=== PATIENT | female | born 1960 | race Caucasian/White ===

== ENCOUNTER → 2017-01-02 | Day surgery (SDC) | payer BC ==
[~2017-01-02] MED LIST: ALBUTEROL17 GM INH; CLIMARA 0.050.05 MG EXT; DETROL LA PO; FLONASE ALLERG9.9 ML; K-DUR20 ME1 PO; LOSARTAN POTASS50 MG PO; MACRODANTIN50 MG PO; OMEPRAZOLE40 M1 PO; TEGRETOL PO; [UNRECOGNIZED DRUG - OTHER]
--- NOTE | ~2017-01-02 | OR ---
Unit #: [id number] #: [id number] Patient: LIDYA JIMENEZ [id number] [address] [place], [place] [address] [id number] O MR#: [id number] NAME: LIDYA JIMENEZ. ROOM: Date of Procedure: 01/01/2017 Admission Date: 01/02/2017 Surgeon: Anahy Dias M.D. : 1960 Attending Physician: Anahy Dias M.D. Primary Care Physician: Mariano Michele M.D. OPERATIVE REPORT PROCEDURE PERFORMED Bronchoscopy with bronchial wash, bronchoalveolar lavage, right middle lobe and left lower lobe. INDICATIONS FOR PROCEDURE Acute bronchitis. INDICATIONS FOR PROCEDURE This is a 56-year-old lady with severe chronic cough. DESCRIPTION OF PROCEDURE After obtained informed consent, bronchoscope was passed oropharyngeally without difficulty into the right upper, right middle, right lower, left upper, left lingular, left lower. Anesthesia had been given. The bronchoscope had been passed through the oropharynx with 2% Xylocaine and 1% Xylocaine used. The oropharynx had showed significant erythema. The trachea had showed very significant erythema with small areas of bleeding with even smallest touch of the bronchoscope. The airways showed changes of chronic bronchitis including significant pitting hypertrophy of the bronchial rings, very easy collapsibility; however, also there were changes of diffuse erythematous tracheobronchitis with easy bruising, very easy bleeding from not just with suctioning, but just with having the bronchoscope touch the baltazar. There were very scant purulent mucus plugs. The airways did not show any endobronchial lesions; however, they did collapse very easily and there was a significant amount of watery thin secretions. Bronchoscope was passed into the right middle lobe and approximately 120 mL sterile nonbacteriostatic saline was introduced, approximately 40 mL were returned. This was clear fluid, not particularly foamy, but there was no evidence of purulence. Bronchoscope was then passed into the left lower lobe posterior segment. 90 mL of sterile nonbacteriostatic saline was introduced and approximately 20 was returned. Due to the irritation, the fluid was slightly pink. It was very foamy when agitated. Bronchoscope was then withdrawn. There were no acute complications. There were no limitations. Thank you very much. Please page me at [phone] if you have any questions. Dictated by... Anahy Dias M.D. Unit #: [id number] #: [id number] Patient: LIDYA JIMENEZ ERICK/wesly TD: 01/02/2017 22:45 JOB #: [id number] OPERATIVE REPORT Page 1 of 1 X Enrique Dias MD X PROCEDURE OPERATIVE NOTE
[2017-01-02 11:54] LABS: BODY FLUID APPEARANCE CLEAR; BODY FLUID SOURCE BRONCHIAL LAVAGE
[2017-01-02 11:55] LABS: BF TOTAL NUCLEATED CELL COUNT 101 CMM (0-100); BODY FLUID RBC <10000 CMM
[2017-01-02 11:56] LABS: BF TOTAL NUCLEATED CELL COUNT 257 CMM (0-100); BODY FLUID APPEARANCE BLOODY; BODY FLUID RBC 15977 CMM; BODY FLUID SOURCE BRONCHIAL LAVAGE
[2017-01-04 01:39] LABS: HSV 1 DNA Not Detected (Not Detected); HSV 2 DNA Not Detected (Not Detected)
== END | disposition home or self-care (01) ==
LOC: COPS 06:32
PROVIDERS: Internal Medicine Pulmonary Disease
DX: J20.9 Acute bronchitis, unspecified (principal); I10 Essential (primary) hypertension; K21.9 Gastro-esophageal reflux disease without esophagitis; J45.909 Unspecified asthma, uncomplicated; Z88.1 Allergy status to other antibiotic agents; Z88.2 Allergy status to sulfonamides; Z88.8 Allergy status to other drugs, medicaments and biological substances; Z79.899 Other long term (current) drug therapy; Z90.710 Acquired absence of both cervix and uterus
CPT/HCPCS: 87070; 87102; 87116; 87205; 87206; 87252; 87254; 87305; 87529; 88108; 88305; 89051; J0171; J2250

== ENCOUNTER → 2017-02-02 | Day surgery (SDC) | payer BC ==
--- NOTE | ~2017-02-02 | OR ---
Unit #: [id number] #: [id number] Patient: LIDYA JIMENEZ [id number] [address] [place], [place] [address] [id number] O MR#: [id number] NAME: LIDYA JIMENEZ ROOM: Date of Procedure: 02/02/2017 Admission Date: 02/02/2017 Surgeon: Domo Dai M.D. : 1960 Attending Physician: Domo Dai M.D. Referring Physician: Anahy Dias M.D. Primary Care Physician: Mariano Michele M.D. PROCEDURE OPERATIVE NOTE PREOPERATIVE DIAGNOSIS Patient presented with a history of severe bronchospasm, allergic or bronchitis bronchial asthma, and coughing up quite a bit of sputum. She has minimal reflux-related symptoms. PROCEDURE PERFORMED Upper GI endoscopy and biopsy. POSTOPERATIVE DIAGNOSES 1. There was mild prepyloric antral gastritis, mostly in the form of focal erythema and erythematous streaks; otherwise, examination was normal up to the third part of the duodenum. 2. Particular attention was paid to posterior pharynx, (1) folds and epiglottis, and no abnormalities whatsoever were found. Lastly, the patient had no evidence of esophagitis or hiatal hernia. SEDATION USED MAC. PROCEDURE DESCRIPTION Following detailed explanation of potential risks and complications of an upper endoscopy, namely perforation, bleeding, and complications related to sedation, the patient was brought to the GI lab and laid in the left lateral decubitus position. The lubricated tip of the Olympus video upper endoscope was passed through the bite block into the proximal esophagus under direct vision. The entire esophageal mucosa was examined and appeared normal. The Z line was nicely demarcated, there being no esophagitis or hiatal hernia. The scope was then advanced to the gastric cavity, and the latter was insufflated. The mucosa of the fundus, body and antrum was examined, and the patient was noted to have mild prepyloric antral erythema and erythematous streaks. The pylorus was intubated with visualization of the normal duodenal bulb and second and third parts of the duodenum. Upon withdrawal and retroflexion, the incisura, cardia and greater curve were examined, and no additional findings were noted. A biopsy was obtained from the antrum for SUZY test. The scope was then withdrawn into the distal esophagus. The entire esophageal mucosa was examined all the way up to the pharynx. No additional findings were noted. The patient tolerated the procedure without any postprocedure complications. Dictated by... Unit #: [id number] #: [id number] Patient: JIMENEZ,LIDYAMarlen Giraldo TD: 02/02/2017 09:34 JOB #: [id number] PROCEDURE OPERATIVE NOTE Page 1 of 1 X Domo Dai MD X PROCEDURE OPERATIVE NOTE
== END | disposition home or self-care (01) ==
LOC: COPS 05:56
DX: K29.70 Gastritis, unspecified, without bleeding (principal); K21.9 Gastro-esophageal reflux disease without esophagitis; I10 Essential (primary) hypertension; J45.909 Unspecified asthma, uncomplicated; Z88.1 Allergy status to other antibiotic agents; Z88.2 Allergy status to sulfonamides; Z88.8 Allergy status to other drugs, medicaments and biological substances; Z90.710 Acquired absence of both cervix and uterus; Z98.890 Other specified postprocedural states; Z79.899 Other long term (current) drug therapy
CPT/HCPCS: 87077; J2250

== ENCOUNTER → 2017-03-26 | Outpatient (CLI) | payer BC ==
--- NOTE | ~2017-03-26 | US85 ---
[facility] A Service of [facility] & [facility] RADIOLOGY TEXT RESULTS PATIENT: LIDYA JIMENEZ LOCATION: CNIV : 62 UNIT #: [id number] AGE: [address]: Alejandro Petty MD SEX: F ORDER DR: [id number] [facility] [address] [place], [place] [address] [id number] O MR#: [id number] Acc #: [id number] NAME: LIDYA JIMENEZ. : 1960 SEX: F STUDY DATE/TIME: 03/26/2017 16:33 UNIT: CNIV ROOM: STUDY DESCRIPTION: [facility] or [facility] Attending Physician: Alejandro Petty M.D. Referring Physician: Mariano Michele M.D. Ordering Physician: Alejandro Petty M.D. Primary Care Physician: Mariano Michele M.D. MEDICAL IMAGING REPORT This report is preliminary unless electronic signature is present EXAM Left leg vein Doppler, 03/26 INDICATION Leg swelling on the left side for the last 2 weeks. No trauma. TECHNIQUE Venous ultrasound examination of the left lower extremity was performed using grayscale, spectral Doppler and color flow Doppler imaging. FINDINGS The examination is negative. There is no evidence of left lower extremity deep venous thrombus from the groin to the lower calf. Visualized greater saphenous vein is also patent. IMPRESSION Negative examination. No evidence of left lower extremity deep venous thrombosis. Dictated by... Jacob Velez Jr., M.D. THIS IS AN ELECTRONICALLY VERIFIED REPORT Jacob Velez Jr., M.D. at 03/28/2017 4:33 PM SABINO/rolando TD: 03/27/2017 07:29 JOB #: [id number] MEDICAL IMAGING REPORT Page 1 of 1 COPY
== END | disposition home or self-care (01) ==
LOC: CNIV 16:00
DX: M79.89 Other specified soft tissue disorders (principal)
CPT/HCPCS: 93971

== ENCOUNTER → 2017-04-06 | Outpatient (CLI) | payer BC ==
--- NOTE | ~2017-04-06 | MR17 ---
[facility] A Service of [facility] & [facility] RADIOLOGY TEXT RESULTS PATIENT: LIDYA JIMENEZ LOCATION: CMRI : 62 UNIT #: [id number] AGE: [address]: Orion Godinez II, MD SEX: F ORDER DR: [id number] [facility] [address] [place], [place] [address] [id number] O MR#: [id number] Acc #: [id number] NAME: LIDYA JIMENEZ. : 1960 SEX: F STUDY DATE/TIME: 04/06/2017 17:25 UNIT: CMRI ROOM: STUDY DESCRIPTION: MR Brain WWo Contrast Attending Physician: Orion Godinez II., M.D. Referring Physician: Orion Godinez II., M.D. Ordering Physician: Orion Godinez II., M.D. Primary Care Physician: Alejandro Petty M.D. MRI CENTER REPORT This report is preliminary unless electronic signature is present. EXAM MRI of the brain with and without contrast dated 04/06/17. COMPARISON: CT head without contrast dated 10/28/10 HISTORY Seizure since high school. The last one was about a month ago. FINDINGS Multisequence multiplanar imaging of the brain was obtained with and without contrast. GFR measured greater than 60. 11 mL of MultiHance was administered intravenous. Age appropriate parenchymal volume is seen. There are less than 5 mm 15 or so hypertense T2 nonenhancing lesions in the periventricular and subcortical white matter particularly in bifrontal lobes. They are nonspecific and nonenhancing. No associated hemorrhage, mass effect or restricted diffusion. No congenital malformations or heterotopias. Thin coronal T2 sequence with a hippocampal formation does not demonstrate any significant abnormality. Expected shape, size, signal characteristics are noted without any significant abnormality. Vascular flow voids of the major cerebral arteries and dural venous sinuses are not completely occluded in these thicker slices. Paranasal sinus mucosal thickening is noted worse in bilateral ethmoid sinuses where it is moderate to severe. Imaged orbits with the ocular structures and mastoids do not demonstrate any significant abnormality. Thick slices through the sella with the pituitary gland, pineal region are unremarkable. Degenerative disc disease is noted in the upper cervical spine. IMPRESSION 1. Scattered few small nonenhancing nonspecific hyperintense T2 signal lesions are noted in the supratentorial white matter, likely related to mild chronic microvascular ischemic change or migraine based on age and statistics. They could also be related to other insults and STS. [facility] A Service of [facility] & [facility] RADIOLOGY TEXT RESULTS PATIENT: LIDYA JIMENEZ LOCATION: [facility] : 62 UNIT #: [id number] AGE: [address]: Orion Godinez II, MD SEX: F ORDER DR: white matter disease in the appropriate clinical setting. Nonspecific. 2. No acute intracranial abnormality, congenital malformations or hippocampal abnormalities. Dictated by... Jeffrey Bustillos M.D. THIS IS AN ELECTRONICALLY VERIFIED REPORT Jeffrey Bustillos M.D. at 04/09/2017 4:15 PM CPR/cmm TD: 04/09/2017 11:34 JOB #: [id number] MRI CENTER REPORT Page 1 of 1 COPY
[2017-04-06 17:31] LABS: POC - CREATININE 0.75 mg/dL (0.44-1.03); POC - GFR >60.0 mL/min (>60)
== END | disposition home or self-care (01) ==
LOC: CMRI 16:04
PROVIDERS: Psychiatry & Neurology Neurology
DX: R56.9 Unspecified convulsions (principal); R90.82 White matter disease, unspecified
CPT/HCPCS: 70553; 82565; A9577

== ENCOUNTER → 2017-05-09 | Outpatient (CLI) | payer BC ==
[2017-05-11 23:24] LABS: TISSUE TRANSGLUTAMINASE IGA AB 1 U/mL (<4); TISSUE TRANSGLUTAMINASE IGG 1 U/mL (<6)
== END | disposition home or self-care (01) ==
LOC: CLAB 15:55
PROVIDERS: Nurse Practitioner
DX: R10.13 Epigastric pain (principal)
CPT/HCPCS: 83516